=== PATIENT | male | born 1945 | race Caucasian/White ===

== ENCOUNTER 2017-07-09 23:47 | Observation (INO) | payer OTHER ==
[2017-07-10 00:17] LABS: ADD MAN DIFF? NO
[2017-07-10 00:21] LABS: BASO % 1 % (0-3); EOS # 0.3 x10^3/uL (0.0-0.7); EOS % 3 % (0-3); HEMOGLOBIN 14.3 g/dL (13.0-17.5); LYMPH % 34 % (24-48); MEAN CORPUSCULAR HEMOGLOBIN 32 pg (25-35); MEAN CORPUSCULAR HGB CONC 35 g/dL (31-37); MEAN CORPUSCULAR VOLUME 93 fL (79-100); MONO # 0.8 x10^3/uL (0.0-1.1); MONO % 9 % (0-9); NEUT # 4.8 x10^3uL (1.8-7.7); NEUT % 54 % (31-73); PLATELET COUNT 219 x10^3/uL (140-400); RED BLOOD COUNT 4.42 x10^6/uL (4.30-5.70); RED CELL DISTRIBUTION WIDTH 13.1 % (11.5-14.5)
[2017-07-10 00:33] LABS: BILIRUBIN,URINE NEGATIVE (NEG); CLARITY,URINE CLOUDY; COLOR,URINE YELLOW; GLUCOSE,URINE NEGATIVE (NEG); NITRITE,URINE NEGATIVE (NEG); PROTEIN,URINE NEGATIVE (NEG-TRACE)
[2017-07-10 00:37] LABS: ANION GAP 9 (6-14); BLOOD UREA NITROGEN 22 mg/dL (8-26); BUN/CREATININE RATIO 15 (6-20); CALCIUM 8.4 mg/dL (8.5-10.1); CARBON DIOXIDE 28 mmol/L (21-32); CHLORIDE 104 mmol/L (98-107); CREATININE 1.5 mg/dL (0.7-1.3); GLUCOSE 93 mg/dL (70-99); POTASSIUM 4.1 mmol/L (3.5-5.1); SODIUM 141 mmol/L (136-145)
[2017-07-10 00:40] LABS: BACTERIA,URINE 0 /HPF (0-FEW); WBC,URINE OCC /HPF (0-4)
[2017-07-10 00:43] LABS: ALBUMIN 3.3 g/dL (3.4-5.0); ALBUMIN/GLOBULIN RATIO 0.8 (1.0-1.7); ALK PHOS 70 U/L (46-116); ALT (SGPT) 30 U/L (16-63); AST (SGOT) 24 U/L (15-37); LIPASE 136 U/L (73-393); TOTAL BILIRUBIN 0.4 mg/dL (0.2-1.0); TOTAL PROTEIN 7.3 g/dL (6.4-8.2)
[2017-07-10] MEDS: IOHEXOL 300 MG/ML 100ML VIAL. IV (01:40)
[2017-07-10] MEDS ORDERED: CONTRAST GIVEN MC (01:45)
[2017-07-10] MEDS: IV NORMAL SALINE 1000ML BAG 1,000 ML IV ×4 (01:47→23:56)
[2017-07-10] MEDS: PIPERACILLIN/TAZOBACTAM 3.375 GM in IV NORMAL SALINE 50ML 50 ML IV ×5 (03:18→23:55)
[2017-07-10 08:22] LABS: INR 1.1 (0.8-1.1); PROTHROMBIN TIME PATIENT 13.6 SEC (11.7-14.0)
[2017-07-10] MEDS ORDERED: PROPOFOL 20 ML IV (08:27)
[2017-07-10] MEDS ORDERED: LIDOCAINE 2% PF Vial for OR 5 ML VIAL. (08:27)
[2017-07-10] MEDS ORDERED: fentaNYL PF VIAL 100 MCG/2 ML VIAL ×2 (08:27→10:49)
[2017-07-10] MEDS ORDERED: SUCCINYLCHOLINE 200 MG/10 ML VIAL. (08:28)
[2017-07-10] MEDS ORDERED: ROCURONIUM 50 MG/5 ML VIAL. (08:28)
[2017-07-10] MEDS: IV RINGERS,LACTATED 1000ML 1,000 ML IV (08:31)
[2017-07-10] MEDS ORDERED: fentaNYL PF VIAL 100 MCG/2 ML VIAL IV ×2 (08:45)
[2017-07-10] MEDS ORDERED: ONDANSETRON PF 4 MG/2 ML VIAL. IV (08:45)
[2017-07-10] MEDS ORDERED: hydrALAZINE 20 MG/ML VIAL. IVP (08:45)
[2017-07-10] MEDS ORDERED: LABETALOL 20 MG/4 ML DISP.SYRIN. IVP (08:45)
[2017-07-10] MEDS ORDERED: LIDOCAINE 1% PF 2 ML VIAL. ID (08:45)
[2017-07-10] MEDS ORDERED: MORPHINE SULFATE 4 MG/ML DISP.SYRIN. IV (08:45)
[2017-07-10] MEDS: BACITRACIN 50,000 UNIT in IV NORMAL SALINE 500ML BAG 500 ML IRR (09:00)
[2017-07-10] MEDS ORDERED: SCOPOLAMINE 1.5MG PATCH. TD (09:13)
[2017-07-10] MEDS ORDERED: FAMOTIDINE 20 MG/2 ML VIAL (09:29)
[2017-07-10] MEDS ORDERED: DEXAMETHASONE SOD PHOS 20 MG/5 ML VIAL. (09:29)
[2017-07-10] MEDS ORDERED: ONDANSETRON PF 4 MG/2 ML VIAL. (09:29)
[2017-07-10] MEDS: BUPIVACAINE-EPI 0.25%-1:200000 50 ML VIAL. (09:35)
[2017-07-10] MEDS ORDERED: ePHEDrine PF IN SALINE 50 MG/5 ML DISP.SYRIN IV (09:39)
[2017-07-10] MEDS ORDERED: GLYCOPYRROLATE 1 MG/5 ML VIAL. (09:39)
[2017-07-10] MEDS ORDERED: NEOSTIGMINE METHYLSULFATE 5 MG/5 ML SYRINGE. (09:57)
[2017-07-10] MEDS ORDERED: DESFLURANE 31 TO 60 MINUTES IH (09:58)
[2017-07-10] MEDS ORDERED: oxyCODONE/APAP 7.5/325 1 TAB TABLET PO (10:45)
[2017-07-10] MEDS ORDERED: PROCHLORPERAZINE 10 MG/2 ML VIAL. (10:49)
[2017-07-10] MEDS: PROCHLORPERAZINE 10 MG/2 ML VIAL. IV (10:54)
[2017-07-10] MEDS: fentaNYL PF VIAL 100 MCG/2 ML VIAL IV ×2 (10:56→11:38)
[2017-07-10] MEDS: LACTOBACILLUS RHAMNOSUS GG 1 CAPSULE. PO (20:55)
[2017-07-11] MEDS: PIPERACILLIN/TAZOBACTAM 3.375 GM in IV NORMAL SALINE 50ML 50 ML IV ×2 (05:33→12:08)
[2017-07-11] MEDS: LACTOBACILLUS RHAMNOSUS GG 1 CAPSULE. PO (09:18)
[2017-07-11] MEDS: MELOXICAM 7.5 MG TABLET PO (12:00)
[2017-07-11] MEDS ORDERED: FLUTICASONE 50MCG/NASAL SPRAY 16GM BOTTLE. NS (12:00)
[2017-07-11] MEDS: LISINOPRIL 10 MG TABLET PO (12:00)
[2017-07-11] MEDS: ALPRAZolam 0.5 MG TABLET PO (12:00)
[2017-07-11] MEDS: ASPIRIN 325 MG TABLET PO (12:00)
[2017-07-11] MEDS: PANTOPRAZOLE 40 MG TABLET.DR. PO (12:05)
[2017-07-11] MEDS ORDERED: ATORVASTATIN CALCIUM 10 MG TABLET. PO (21:00)
[2017-07-11] MEDS ORDERED: BACLOFEN 10 MG TABLET. PO (21:00)
== END 2017-07-11 15:46 | disposition home or self-care (01) ==
LOC: ER 23:47 → 4 NORTH 07-10 03:24
DX: K35.80 Unspecified acute appendicitis (principal); E78.5 Hyperlipidemia, unspecified; I10 Essential (primary) hypertension; K21.9 Gastro-esophageal reflux disease without esophagitis; I25.10 Atherosclerotic heart disease of native coronary artery without angina pectoris; F41.9 Anxiety disorder, unspecified; E78.00 Pure hypercholesterolemia, unspecified; Z82.49 Family history of ischemic heart disease and other diseases of the circulatory system; Z85.820 Personal history of malignant melanoma of skin
CPT/HCPCS: 36415; 74177; 80053; 81001; 83690; 85025; 85610; 88304; 96360; 96361; 99285-25; G0378; G0379; J0330; J0780; J1100; J2405; J2543; J2704; J2710; J3010; J3490; J7030; Q9967; S0028